=== PATIENT | female | born 1945 | race Caucasian/White ===

== ENCOUNTER 2018-02-05 11:04 | Observation (INO) | payer MEDICARE, OTHER ==
[2018-02-05] VITALS (26 sets, daily range): BP systolic 117–152; BP diastolic 69–94
[~2018-02-05] VITALS: Ht 157.5 cm; Wt 95.5 kg
[~2018-02-05 11:04] MED LIST: ASCO10007 PO; Aspirin PO; CA C1TAB90 PO; CELE200 PO; CHOL200059 PO; CINN500C PO; CRAN1CAP5 PO; CYAN100T PO; HYDR-2132 PO; HYDR12.530 PO; LATA2.5D2 OP; METO-409 PO; PANT40TA25 PO; POTA2TAB18 PO; PRAV20TA4 PO; VITA400C70 PO
[2018-02-05] MEDS ORDERED: NITROGLYCERIN 0.4 MG SL TAB SL ONE (11:32)
[2018-02-05] MEDS ORDERED: GLUCAGON 1MG KIT 1 MG ML ONE (12:13)
[2018-02-05] MEDS ORDERED: SODIUM CHLORIDE 0.9% 500ML 500 ML IV ONE ×2 (12:38→16:13)
[2018-02-05 14:16] LABS: BASOPHILS % (AUTO) 0.7 % (0.0-5.0); HEMATOCRIT 42.5 % (36-48); LYMPHOCYTES % (AUTO) 11.9 % (21.0-51.0); MEAN CORPUSCULAR HEMOGLOBIN 29.7 pg (27.0-33.0); MEAN CORPUSCULAR VOLUME 87.3 fL (79-99); MONOCYTES % (AUTO) 5.4 % (3.0-13.0); PLATELET COUNT (AUTO) 217 K/uL (130-400); RED BLOOD CELL COUNT(AUTO) 4.87 MIL/uL (4.00-5.50); RED CELL DISTRIBUTION WIDTH 13.2 % (11.0-15.5)
[2018-02-05 14:31] LABS: POTASSIUM 4.2 mmol/L (3.5-5.1)
[2018-02-05 14:35] LABS: INR 0.98 (0.85-1.15); PARTIAL THROMBOPLASTIN TIME 25.4 SEC (26.3-35.5); PROTHROMBIN TIME 10.3 SEC (9.6-11.6)
[2018-02-05] MEDS: SODIUM CHLORIDE 0.9% 1000ML 1,000 ML IV SCH (16:01)
[2018-02-05] MEDS ORDERED: ONDANSETRON HCL 4 MG/2 ML VIAL IVP PRN (16:15)
[2018-02-05] MEDS ORDERED: HYDRALAZINE HCL 20 MG/ML VIAL IV PRN (16:15)
[2018-02-05] MEDS ORDERED: SODIUM CHLORIDE 0.9% 1000ML 1,000 ML IV ONE (17:22)
[2018-02-05] MEDS ORDERED: SUCCINYLCHOLINE CHLORIDE 20 MG/ML 10 ML VIAL ONE (17:31)
[2018-02-05] MEDS ORDERED: PROPOFOL 10 MG/ML 20ML VIAL IV ONE (17:31)
[2018-02-05] MEDS ORDERED: ROCURONIUM 10MG/1ML SYR 10 MG/ML ML ONE (17:33)
[2018-02-05] MEDS ORDERED: ESMOLOL HCL 10 MG/ML 10 ML VIAL ONE ×2 (17:34→18:22)
[2018-02-05] MEDS ORDERED: METOPROLOL TARTRATE 1 MG/ML 5ML VIAL IV ONE (18:49)
[2018-02-05] MEDS: CLINDAMYCIN 600 MG/D5% WATER 50 ML IV SCH ×2 (22:00→22:10)
[2018-02-05] MEDS: PANTOPRAZOLE 40 MG/VIAL IVP SCH (22:09)
[2018-02-06] MEDS: SODIUM CHLORIDE 0.9% 1000ML 1,000 ML IV SCH ×3 (00:01→16:01)
[2018-02-06 00:15] VITALS: BP 135/63
[2018-02-06 04:00] VITALS: BP 122/59
[2018-02-06 05:06] LABS: BASOPHILS % (AUTO) 0.5 % (0.0-5.0); EOSINOPHILS % (AUTO) 1.9 % (0.0-8.0); HEMATOCRIT 36.3 % (36-48); LYMPHOCYTES % (AUTO) 28.9 % (21.0-51.0); MEAN CORPUSCULAR HEMOGLOBIN 29.3 pg (27.0-33.0); MEAN CORPUSCULAR HGB CONC 33.7 g/dL (32.0-36.0); MEAN CORPUSCULAR VOLUME 87.2 fL (79-99); MONOCYTES % (AUTO) 9.5 % (3.0-13.0); NEUTROPHILS % (AUTO) 59.2 % (40.0-77.0); PLATELET COUNT (AUTO) 161 K/uL (130-400); RED BLOOD CELL COUNT(AUTO) 4.16 MIL/uL (4.00-5.50); RED CELL DISTRIBUTION WIDTH 13.1 % (11.0-15.5); WHITE BLOOD COUNT (AUTO) 7.6 K/uL (4.8-10.8)
[2018-02-06] MEDS: CLINDAMYCIN 600 MG/D5% WATER 50 ML IV SCH ×2 (05:42→14:10)
[2018-02-06 05:44] LABS: ALBUMIN 2.8 g/dL (3.5-5.0); BILIRUBIN,DIRECT 0.1 mg/dL (0.0-0.3); BILIRUBIN,TOTAL 0.6 mg/dL (0.2-1.0); CREATININE 0.9 mg/dL (0.5-1.5); POTASSIUM 3.4 mmol/L (3.5-5.1); TOTAL PROTEIN, SERUM 6.1 g/dL (6.0-8.3)
[2018-02-06 08:11] VITALS: BP 125/66
[2018-02-06] MEDS: PANTOPRAZOLE 40 MG/VIAL IVP SCH (09:24)
[2018-02-06 11:21] VITALS: BP 126/56
[2018-02-06] MEDS ORDERED: CLIN300C9 PO ×2 (16:01→16:10)
[2018-02-06] MEDS ORDERED: CARAL PO (16:01)
[2018-02-06] MEDS ORDERED: SUCR1TAB28 PO (16:10)
[2018-02-06 16:29] VITALS: BP 118/50
[2018-02-06] MEDS ORDERED: POTASSIUM CHLORIDE 20 MEQ ERTAB PO SCH (17:30)
== END 2018-02-06 19:40 | disposition home or self-care (01) ==
LOC: EDH 11:04 → EDHIP 15:01 → 3DH 19:31
PROVIDERS: ADMIT Internal Medicine; ATTEND Internal Medicine
DX: K22.2 Esophageal obstruction (principal); I10 Essential (primary) hypertension; R11.2 Nausea with vomiting, unspecified; E78.5 Hyperlipidemia, unspecified; K21.9 Gastro-esophageal reflux disease without esophagitis; D72.829 Elevated white blood cell count, unspecified; E66.9 Obesity, unspecified; R93.3 Abnormal findings on diagnostic imaging of other parts of digestive tract; T18.128A Food in esophagus causing other injury, initial encounter; Z82.3 Family history of stroke; Z80.3 Family history of malignant neoplasm of breast; Z88.5 Allergy status to narcotic agent; Z88.0 Allergy status to penicillin; Z79.899 Other long term (current) drug therapy; X58.XXXA Exposure to other specified factors, initial encounter; Y93.89 Activity, other specified; Y92.89 Other specified places as the place of occurrence of the external cause; Y99.8 Other external cause status; Z79.01 Long term (current) use of anticoagulants
CPT/HCPCS: 36415 ×2; 43247; 71250; 80048 ×2; 80076; 83735; 85025 ×2; 85610; 85730; 96361; 96365; 96366; 96375; 96376; 99284; A4218; C9113 ×2; G0378 ×29; J0330; J1610; J2704; J3490 ×6; J7030; J7040 ×2; 43245

== ENCOUNTER 2020-01-21 20:30 | Inpatient (IN) | payer MEDICARE, OTHER ==
[~2020-01-21] VITALS: Ht 157.5 cm; Wt 82.3 kg
[~2020-01-21 20:30] MED LIST changes: +ASCO100031 PO; -ASCO10007 PO; +CARAL PO; +CLIN300C10 PO; -CYAN100T PO; +CYAN100T45 PO; +LATA2.5D14 OP; -LATA2.5D2 OP; -PANT40TA25 PO; +PANT40TA54 PO; +SUCR1TAB28 PO; +VITA-164 PO; -VITA400C70 PO
[2020-01-21 20:54] LABS: BASOPHILS % (AUTO) 0.1 % (0.0-5.0); EOSINOPHILS % (AUTO) 1.6 % (0.0-8.0); HEMATOCRIT 44.9 % (36-48); LYMPHOCYTES % (AUTO) 13.1 % (21.0-51.0); MEAN CORPUSCULAR HEMOGLOBIN 27.6 pg (27.0-33.0); MEAN CORPUSCULAR HGB CONC 34.5 g/dL (32.0-36.0); MEAN CORPUSCULAR VOLUME 79.9 fL (79-99); MONOCYTES % (AUTO) 8.4 % (3.0-13.0); NEUTROPHILS % (AUTO) 76.7 % (40.0-77.0); PLATELET COUNT (AUTO) 195 K/uL (130-400); RED BLOOD CELL COUNT(AUTO) 5.62 MIL/uL (4.00-5.50); RED CELL DISTRIBUTION WIDTH 14.1 % (11.0-15.5); WHITE BLOOD COUNT (AUTO) 6.8 K/uL (4.8-10.8)
[2020-01-21 21:03] LABS: ABG BASE EXCESS 1.4 mmol/L (-2.0-3.0); ABG HCO3 22.8 mmol/L (21.0-28.0); ABG OXYGEN SATURATION 78.4 % (95.0-99.0); ABG PCO2 28 mmHg (32-45)
[2020-01-21 21:04] LABS: CREATININE 1.3 mg/dL (0.5-1.5); POTASSIUM 3.1 mmol/L (3.5-5.1)
[2020-01-21 21:11] LABS: INR 0.95 (0.85-1.15); PROTHROMBIN TIME 10.3 SEC (9.6-11.6)
[2020-01-21] MEDS ORDERED: CEFTRIAXONE SODIUM 2 GM VIAL ONE (21:12)
[2020-01-21] MEDS ORDERED: AZITHROMYCIN 500MG+NS 250ML 250 ML IV ONE (21:12)
[2020-01-21 21:17] LABS: ALBUMIN 2.8 g/dL (3.5-5.0); BILIRUBIN,TOTAL 0.7 mg/dL (0.2-1.0); TOTAL PROTEIN, SERUM 8.1 g/dL (6.0-8.3)
[2020-01-21] MEDS ORDERED: DEXAMETHASONE SOD PHOSPHATE 10MG/ML 1ML VIAL ONE (21:26)
[2020-01-21 22:54] LABS: APPEARANCE,URINE Clear (CLEAR); BILIRUBIN,URINE Negative (NEGATIVE); COLOR,URINE Dark Yellow (YELLOW); GLUCOSE, URINE (UA) Negative (NEGATIVE); KETONES,URINE 15 mg/dL (NEGATIVE); LEUKOCYTE ESTERASE ,URINE Negative (NEGATIVE); NITRATE,URINE Negative (NEGATIVE); OCCULT BLOOD,URINE Negative (NEGATIVE); PH,URINE 5.5 (5.0-8.0); PROTEIN,URINE 300 mg/dL (NEGATIVE)
[2020-01-21 23:07] LABS: BACTERIA,URINE Few /HPF (None Seen); RBC,URINE 0-1 /HPF (0-1)
[2020-01-21 23:08] LABS: FINE GRANULAR CASTS,URINE 0-2 /LPF (None Seen); MUCUS,URINE Few LPF (None Seen)
[2020-01-21] MEDS ORDERED: POTASSIUM BICARB/CIT AC 25 MEQ TABLET.EFF ONE (23:49)
[2020-01-22] MEDS ORDERED: LIDOCAINE HCL-MPF 1% 2ML VIAL IJ PRN (01:30)
[2020-01-22] MEDS ORDERED: ALBUTEROL INHALER 90MCG/INH IH PRN ×2 (01:30→23:00)
[2020-01-22] MEDS ORDERED: LIDOCAINE HCL-MPF 1% 2ML VIAL IV PRN (01:30)
[2020-01-22] MEDS ORDERED: ONDANSETRON HCL 4 MG/2 ML VIAL IVP PRN ×2 (01:30→23:00)
[2020-01-22] MEDS ORDERED: LACTATED RINGERS 1000ML 1,000 ML IV ONE (04:31)
[2020-01-22 05:11] LABS: BASOPHILS % (AUTO) 0.2 % (0.0-5.0); HEMATOCRIT 41.7 % (36-48); LYMPHOCYTES % (AUTO) 12.9 % (21.0-51.0); MEAN CORPUSCULAR HEMOGLOBIN 27.2 pg (27.0-33.0); MEAN CORPUSCULAR HGB CONC 33.8 g/dL (32.0-36.0); MEAN CORPUSCULAR VOLUME 80.3 fL (79-99); MONOCYTES % (AUTO) 5.6 % (3.0-13.0); NEUTROPHILS % (AUTO) 81.1 % (40.0-77.0); PLATELET COUNT (AUTO) 184 K/uL (130-400); RED BLOOD CELL COUNT(AUTO) 5.19 MIL/uL (4.00-5.50); RED CELL DISTRIBUTION WIDTH 14.2 % (11.0-15.5); WHITE BLOOD COUNT (AUTO) 4.1 K/uL (4.8-10.8)
[2020-01-22 05:27] LABS: CREATININE 1.1 mg/dL (0.5-1.5); POTASSIUM 3.4 mmol/L (3.5-5.1)
[2020-01-22 05:31] LABS: ALBUMIN 2.4 g/dL (3.5-5.0); BILIRUBIN,TOTAL 0.4 mg/dL (0.2-1.0); MAGNESIUM 2.5 mg/dL (1.80-2.40); TOTAL PROTEIN, SERUM 7.3 g/dL (6.0-8.3)
[2020-01-22] MEDS: PANTOPRAZOLE SODIUM 40 MG TABLET.DR PO SCH (06:30)
[2020-01-22] MEDS ORDERED: DEXAMETHASONE SOD PHOSPHATE 4 MG/ML 1ML VIAL ONE (07:45)
[2020-01-22] MEDS ORDERED: PANTOPRAZOLE SODIUM 40 MG TABLET.DR ONE (07:45)
[2020-01-22] MEDS: DEXAMETHASONE SOD PHOSPHATE 4 MG/ML 1ML VIAL IVP SCH (09:00)
[2020-01-22] MEDS: LACTATED RINGERS 1000ML 1,000 ML IV SCH ×2 (11:30→21:30)
[2020-01-22] MEDS ORDERED: PHARMACY COMMUNICATION MISC SCH (12:45)
[2020-01-22] MEDS ORDERED: SODIUM CHLORIDE 0.9% 500ML 500 ML IV ONE (13:33)
[2020-01-22] MEDS ORDERED: REMDESIVIR (EUA) 520 200 MG in SODIUM CHLORIDE 0.9% 250 ML IV ONE (15:00)
[2020-01-22] MEDS ORDERED: COMPOUND IV REFRIGERATED 1 EACH IVSOLN MISC PRN (15:00)
[2020-01-22] MEDS ORDERED: CEFTRIAXONE SODIUM 1 GM ONE (19:33)
[2020-01-22] MEDS ORDERED: AZITHROMYCIN 500MG+NS 250ML 250 ML IV ONE (19:33)
[2020-01-22] MEDS ORDERED: SODIUM CHLORIDE 0.9% 50 ML IV ONE (19:34)
[2020-01-22] MEDS: CEFTRIAXONE SODIUM 1 GM IVP SCH (21:00)
[2020-01-22] MEDS ORDERED: ACETAMINOPHEN 650 MG SUPPOSITORY RC PRN (23:00)
[2020-01-22] MEDS ORDERED: CLONIDINE HCL 0.1 MG TABLET PO PRN (23:00)
[2020-01-22] MEDS ORDERED: TEMAZEPAM 15 MG CAPSULE PO PRN (23:00)
[2020-01-23 03:30] VITALS: BP 159/55
[2020-01-23] MEDS: AZITHROMYCIN 500MG+NS 250ML 250 ML IV SCH ×2 (03:30→03:31)
[2020-01-23] MEDS: LACTATED RINGERS 1000ML 1,000 ML IV SCH ×3 (03:31→18:55)
[2020-01-23 05:21] LABS: BASOPHILS % (AUTO) 0.1 % (0.0-5.0); EOSINOPHILS % (AUTO) 0.1 % (0.0-8.0); HEMATOCRIT 44.4 % (36-48); LYMPHOCYTES % (AUTO) 5.8 % (21.0-51.0); MEAN CORPUSCULAR HEMOGLOBIN 26.8 pg (27.0-33.0); MEAN CORPUSCULAR HGB CONC 32.9 g/dL (32.0-36.0); MEAN CORPUSCULAR VOLUME 81.6 fL (79-99); MONOCYTES % (AUTO) 5.1 % (3.0-13.0); NEUTROPHILS % (AUTO) 88.3 % (40.0-77.0); PLATELET COUNT (AUTO) 179 K/uL (130-400); RED BLOOD CELL COUNT(AUTO) 5.44 MIL/uL (4.00-5.50); RED CELL DISTRIBUTION WIDTH 14.3 % (11.0-15.5); WHITE BLOOD COUNT (AUTO) 10.3 K/uL (4.8-10.8)
[2020-01-23 05:42] LABS: CREATININE 1.1 mg/dL (0.5-1.5); MAGNESIUM 2.4 mg/dL (1.80-2.40); POTASSIUM 3.5 mmol/L (3.5-5.1)
[2020-01-23] MEDS: PHARMACY COMMUNICATION MISC SCH (06:00)
[2020-01-23] MEDS: INSULIN HUMULIN R 100 UNIT/ML 3ML SQ SCH ×4 (07:09→21:51)
[2020-01-23 08:00] VITALS: BP 188/86
[2020-01-23] MEDS: PANTOPRAZOLE SODIUM 40 MG TABLET.DR PO SCH (08:06)
[2020-01-23] MEDS ORDERED: ASPIRIN 81MG TAB.CHEW PO SCH (09:00)
[2020-01-23] MEDS ORDERED: ASCORBIC ACID 500 MG TAB PO SCH (09:00)
[2020-01-23] MEDS: DEXAMETHASONE SOD PHOSPHATE 4 MG/ML 1ML VIAL IVP SCH (10:27)
[2020-01-23] MEDS: ENOXAPARIN SODIUM 40 MG/0.4 ML SYRINGE SQ SCH ×2 (10:28→21:50)
[2020-01-23] MEDS: CALCIUM 600 + VITAMIN D 400 TABLET PO SCH (10:43)
[2020-01-23] MEDS: VITAMIN E 400 UNIT CAPSULE PO SCH (10:46)
[2020-01-23] MEDS: ASPIRIN 325MG EC TAB 325 MG TABLET.DR PO SCH (10:47)
[2020-01-23 12:00] VITALS: BP 135/63
[2020-01-23] MEDS: CYANOCOBALAMIN (VITAMIN B-12) 100 MCG TABLET PO SCH (12:09)
[2020-01-23] MEDS: REMDESIVIR (EUA) 520 100 MG in SODIUM CHLORIDE 0.9% 250 ML IV SCH (15:37)
[2020-01-23 16:00] VITALS: BP 134/63
[2020-01-23] MEDS: POTASSIUM CHLORIDE 10 MEQ/TAB.SR PO PRN ×2 (18:57→21:49)
[2020-01-23 21:03] VITALS: BP 140/65
[2020-01-23] MEDS: CEFTRIAXONE SODIUM 1 GM IVP SCH (21:49)
[2020-01-23] MEDS: FUROSEMIDE 10 MG/ML 2ML VIAL IV SCH (21:49)
[2020-01-23] MEDS: LATANOPROST 2.5 ML DROPS OP SCH (22:04)
[2020-01-24 00:30] VITALS: BP 145/91
[2020-01-24] MEDS: AZITHROMYCIN 500MG+NS 250ML 250 ML IV SCH (01:23)
[2020-01-24 04:32] VITALS: BP 126/60
[2020-01-24 05:05] LABS: MEAN CORPUSCULAR HGB CONC 33.5 g/dL (32.0-36.0); MEAN CORPUSCULAR VOLUME 80.6 fL (79-99); RED BLOOD CELL COUNT(AUTO) 4.96 MIL/uL (4.00-5.50); RED CELL DISTRIBUTION WIDTH 14.5 % (11.0-15.5); WHITE BLOOD COUNT (AUTO) 7.5 K/uL (4.8-10.8)
[2020-01-24] MEDS: PHARMACY COMMUNICATION MISC SCH (05:05)
[2020-01-24 05:18] LABS: ALBUMIN 2.2 g/dL (3.5-5.0); BILIRUBIN,DIRECT 0.1 mg/dL (0.0-0.3); BILIRUBIN,TOTAL 0.4 mg/dL (0.2-1.0); CREATININE 0.9 mg/dL (0.5-1.5); POTASSIUM 3.5 mmol/L (3.5-5.1); TOTAL PROTEIN, SERUM 6.7 g/dL (6.0-8.3)
[2020-01-24] MEDS: INSULIN HUMULIN R 100 UNIT/ML 3ML SQ SCH ×4 (05:53→21:52)
[2020-01-24] MEDS: POTASSIUM CHLORIDE 10 MEQ/TAB.SR PO PRN ×2 (06:22→09:23)
[2020-01-24] MEDS: PANTOPRAZOLE SODIUM 40 MG TABLET.DR PO SCH (06:22)
[2020-01-24 07:06] LABS: ABG BASE EXCESS 2.2 mmol/L (-2.0-3.0); ABG HCO3 25.5 mmol/L (21.0-28.0); ABG OXYGEN SATURATION 93.5 % (95.0-99.0); ABG PCO2 36 mmHg (32-45)
[2020-01-24 08:28] VITALS: BP 109/53
[2020-01-24] MEDS: VITAMIN E 400 UNIT CAPSULE PO SCH (09:00)
[2020-01-24] MEDS: CYANOCOBALAMIN (VITAMIN B-12) 100 MCG TABLET PO SCH (09:00)
[2020-01-24] MEDS: CALCIUM 600 + VITAMIN D 400 TABLET PO SCH (09:00)
[2020-01-24] MEDS: CHOLECALCIFEROL 2000 UNIT PO SCH (09:00)
[2020-01-24] MEDS: ENOXAPARIN SODIUM 40 MG/0.4 ML SYRINGE SQ SCH ×2 (09:22→21:47)
[2020-01-24] MEDS: FUROSEMIDE 10 MG/ML 2ML VIAL IV SCH ×2 (09:22→21:47)
[2020-01-24] MEDS: DEXAMETHASONE SOD PHOSPHATE 4 MG/ML 1ML VIAL IVP SCH (09:26)
[2020-01-24] MEDS: ASPIRIN 325MG EC TAB 325 MG TABLET.DR PO SCH (09:26)
[2020-01-24] MEDS: METOPROLOL TARTRATE 25 MG TAB PO SCH ×2 (09:48→21:47)
[2020-01-24] MEDS: ASCORBIC ACID 500 MG TAB PO SCH (09:48)
[2020-01-24 12:00] VITALS: BP 116/50
[2020-01-24] MEDS: REMDESIVIR (EUA) 520 100 MG in SODIUM CHLORIDE 0.9% 250 ML IV SCH (14:23)
[2020-01-24 16:00] VITALS: BP 134/62
[2020-01-24 20:19] VITALS: BP 146/77
[2020-01-24] MEDS: LATANOPROST 2.5 ML DROPS OP SCH (21:00)
[2020-01-24] MEDS: CEFTRIAXONE SODIUM 1 GM IVP SCH (21:47)
[2020-01-25] VITALS (7 sets, daily range): BP systolic 113–168; BP diastolic 43–73
[2020-01-25] MEDS: AZITHROMYCIN 500MG+NS 250ML 250 ML IV SCH (01:30)
[2020-01-25 04:38] LABS: HEMATOCRIT 41.7 % (36-48); MEAN CORPUSCULAR HGB CONC 33.6 g/dL (32.0-36.0); MEAN CORPUSCULAR VOLUME 80.3 fL (79-99); RED BLOOD CELL COUNT(AUTO) 5.19 MIL/uL (4.00-5.50); RED CELL DISTRIBUTION WIDTH 14.4 % (11.0-15.5); WHITE BLOOD COUNT (AUTO) 11.9 K/uL (4.8-10.8)
[2020-01-25 05:09] LABS: ALBUMIN 2.2 g/dL (3.5-5.0); BILIRUBIN,DIRECT 0.1 mg/dL (0.0-0.3); BILIRUBIN,TOTAL 0.4 mg/dL (0.2-1.0); CREATININE 0.9 mg/dL (0.5-1.5); POTASSIUM 3.2 mmol/L (3.5-5.1); TOTAL PROTEIN, SERUM 6.9 g/dL (6.0-8.3)
[2020-01-25] MEDS: PHARMACY COMMUNICATION MISC SCH (06:00)
[2020-01-25] MEDS: POTASSIUM CHLORIDE 10% ELIXIR 20 MEQ/15 ML UDCUP PO PRN (06:01)
[2020-01-25] MEDS: FUROSEMIDE 10 MG/ML 2ML VIAL IV SCH ×2 (06:01→21:45)
[2020-01-25] MEDS: PANTOPRAZOLE SODIUM 40 MG TABLET.DR PO SCH (06:02)
[2020-01-25] MEDS: INSULIN HUMULIN R 100 UNIT/ML 3ML SQ SCH ×4 (07:30→22:04)
[2020-01-25 08:03] LABS: ABG BASE EXCESS 2.2 mmol/L (-2.0-3.0); ABG HCO3 24.3 mmol/L (21.0-28.0); ABG OXYGEN SATURATION 91.4 % (95.0-99.0); ABG PCO2 31 mmHg (32-45)
[2020-01-25] MEDS: VITAMIN E 400 UNIT CAPSULE PO SCH (09:00)
[2020-01-25] MEDS: CHOLECALCIFEROL 2000 UNIT PO SCH (09:00)
[2020-01-25] MEDS: CALCIUM 600 + VITAMIN D 400 TABLET PO SCH (09:00)
[2020-01-25] MEDS: CYANOCOBALAMIN (VITAMIN B-12) 100 MCG TABLET PO SCH (09:00)
[2020-01-25] MEDS: ASCORBIC ACID 500 MG TAB PO SCH (09:59)
[2020-01-25] MEDS: ASPIRIN 325MG EC TAB 325 MG TABLET.DR PO SCH (10:00)
[2020-01-25] MEDS: ACETAMINOPHEN 325 MG TAB PO PRN ×2 (10:00→11:55)
[2020-01-25] MEDS: POTASSIUM CHLORIDE 10 MEQ/TAB.SR PO PRN (10:01)
[2020-01-25] MEDS: DEXAMETHASONE SOD PHOSPHATE 4 MG/ML 1ML VIAL IVP SCH (10:01)
[2020-01-25] MEDS: METOPROLOL TARTRATE 25 MG TAB PO SCH ×2 (10:01→21:42)
[2020-01-25] MEDS: ENOXAPARIN SODIUM 40 MG/0.4 ML SYRINGE SQ SCH ×2 (10:04→21:45)
[2020-01-25] MEDS: CEFEPIME HCL 2 GM VIAL IVP SCH ×2 (12:02→21:45)
[2020-01-25] MEDS: REMDESIVIR (EUA) 520 100 MG in SODIUM CHLORIDE 0.9% 250 ML IV SCH (14:21)
[2020-01-25] MEDS: LATANOPROST 2.5 ML DROPS OP SCH (21:45)
[2020-01-26] VITALS (9 sets, daily range): BP systolic 127–154; BP diastolic 51–78
[2020-01-26] MEDS: AZITHROMYCIN 500MG+NS 250ML 250 ML IV SCH (02:09)
[2020-01-26] MEDS: CEFEPIME HCL 2 GM VIAL IVP SCH ×3 (02:10→22:08)
[2020-01-26] MEDS: PHARMACY COMMUNICATION MISC SCH (04:44)
[2020-01-26] MEDS: ACETAMINOPHEN 325 MG TAB PO PRN (04:52)
[2020-01-26 05:58] LABS: BASOPHILS % (AUTO) 0.1 % (0.0-5.0); EOSINOPHILS % (AUTO) 0.1 % (0.0-8.0); HEMATOCRIT 42.1 % (36-48); LYMPHOCYTES % (AUTO) 6.3 % (21.0-51.0); MEAN CORPUSCULAR HEMOGLOBIN 27.2 pg (27.0-33.0); MEAN CORPUSCULAR HGB CONC 34.2 g/dL (32.0-36.0); MEAN CORPUSCULAR VOLUME 79.4 fL (79-99); MONOCYTES % (AUTO) 2.7 % (3.0-13.0); NEUTROPHILS % (AUTO) 90.2 % (40.0-77.0); PLATELET COUNT (AUTO) 272 K/uL (130-400); RED CELL DISTRIBUTION WIDTH 14.2 % (11.0-15.5); WHITE BLOOD COUNT (AUTO) 10.9 K/uL (4.8-10.8)
[2020-01-26 06:10] LABS: ALBUMIN 2.1 g/dL (3.5-5.0); BILIRUBIN,TOTAL 0.7 mg/dL (0.2-1.0); CREATININE 0.8 mg/dL (0.5-1.5); POTASSIUM 3.3 mmol/L (3.5-5.1); TOTAL PROTEIN, SERUM 7.1 g/dL (6.0-8.3)
[2020-01-26 06:21] LABS: CRP QUANTITATIVE 290.3 mg/L (0.00-9.0)
[2020-01-26] MEDS: INSULIN HUMULIN R 100 UNIT/ML 3ML SQ SCH ×4 (06:21→22:10)
[2020-01-26] MEDS: PANTOPRAZOLE SODIUM 40 MG TABLET.DR PO SCH (06:37)
[2020-01-26 06:52] LABS: ABG BASE EXCESS 5.9 mmol/L (-2.0-3.0); ABG HCO3 29.2 mmol/L (21.0-28.0); ABG OXYGEN SATURATION 92.2 % (95.0-99.0); ABG PCO2 38 mmHg (32-45)
[2020-01-26] MEDS: CHOLECALCIFEROL 2000 UNIT PO SCH (09:00)
[2020-01-26] MEDS ORDERED: ZINC SULFATE 220 CAPSULE PO SCH (09:00)
[2020-01-26] MEDS: ENOXAPARIN SODIUM 40 MG/0.4 ML SYRINGE SQ SCH ×2 (09:20→22:08)
[2020-01-26] MEDS: METOPROLOL TARTRATE 25 MG TAB PO SCH ×2 (09:20→22:08)
[2020-01-26] MEDS: DEXAMETHASONE SOD PHOSPHATE 4 MG/ML 1ML VIAL IVP SCH (09:21)
[2020-01-26] MEDS: ASCORBIC ACID 500 MG TAB PO SCH (09:21)
[2020-01-26] MEDS: FUROSEMIDE 10 MG/ML 2ML VIAL IV SCH ×2 (09:22→18:30)
[2020-01-26] MEDS: CYANOCOBALAMIN (VITAMIN B-12) 100 MCG TABLET PO SCH (09:39)
[2020-01-26] MEDS: VITAMIN E 400 UNIT CAPSULE PO SCH (09:40)
[2020-01-26] MEDS: CALCIUM 600 + VITAMIN D 400 TABLET PO SCH (09:40)
[2020-01-26] MEDS: ASPIRIN 325MG EC TAB 325 MG TABLET.DR PO SCH (09:44)
[2020-01-26] MEDS: POTASSIUM CHLORIDE 10 MEQ/TAB.SR PO PRN (09:45)
[2020-01-26] MEDS ORDERED: AMIODARONE HCL 360 MG in DEXTROSE 5%-WATER 200 ML IV SCH (10:45)
[2020-01-26] MEDS ORDERED: AMIODARONE HCL 150 MG in DEXTROSE 5%-WATER 100 ML IV SCH (10:45)
[2020-01-26] MEDS: POTASSIUM CHLORIDE 10MEQ/100ML 100 ML IV PRN ×2 (12:31→18:30)
[2020-01-26] MEDS: REMDESIVIR (EUA) 520 100 MG in SODIUM CHLORIDE 0.9% 250 ML IV SCH (15:07)
[2020-01-26] MEDS ORDERED: SODIUM CHLORIDE 0.9% 250 ML IV ONE (15:17)
[2020-01-26] MEDS: AMIODARONE HCL 450 MG in DEXTROSE 5%-WATER 250 ML IV SCH (17:35)
[2020-01-26] MEDS: LATANOPROST 2.5 ML DROPS OP SCH (22:08)
[2020-01-27] VITALS (36 sets, daily range): BP systolic 59–159; BP diastolic 23–102
[2020-01-27] MEDS: PHARMACY COMMUNICATION MISC SCH (02:44)
[2020-01-27] MEDS: AZITHROMYCIN 500MG+NS 250ML 250 ML IV SCH (02:57)
[2020-01-27] MEDS: CEFEPIME HCL 2 GM VIAL IVP SCH ×3 (02:57→20:59)
[2020-01-27 04:37] LABS: ABG BASE EXCESS 4.4 mmol/L (-2.0-3.0); ABG HCO3 28.6 mmol/L (21.0-28.0); ABG OXYGEN SATURATION 93.2 % (95.0-99.0); ABG PCO2 41 mmHg (32-45)
[2020-01-27 05:19] LABS: BASOPHILS % (AUTO) 0.1 % (0.0-5.0); HEMATOCRIT 44.2 % (36-48); LYMPHOCYTES % (AUTO) 4.8 % (21.0-51.0); MEAN CORPUSCULAR HEMOGLOBIN 27.4 pg (27.0-33.0); MEAN CORPUSCULAR HGB CONC 34.4 g/dL (32.0-36.0); MEAN CORPUSCULAR VOLUME 79.6 fL (79-99); MONOCYTES % (AUTO) 2.5 % (3.0-13.0); PLATELET COUNT (AUTO) 282 K/uL (130-400); RED BLOOD CELL COUNT(AUTO) 5.55 MIL/uL (4.00-5.50); RED CELL DISTRIBUTION WIDTH 14.5 % (11.0-15.5); WHITE BLOOD COUNT (AUTO) 12.6 K/uL (4.8-10.8)
[2020-01-27 06:02] LABS: ALBUMIN 2.1 g/dL (3.5-5.0); BILIRUBIN,TOTAL 0.8 mg/dL (0.2-1.0); CREATININE 0.9 mg/dL (0.5-1.5); MAGNESIUM 2.3 mg/dL (1.80-2.40); PHOSPHORUS 3.2 mg/dL (2.5-4.9); POTASSIUM 3.6 mmol/L (3.5-5.1); TOTAL PROTEIN, SERUM 7.3 g/dL (6.0-8.3)
[2020-01-27] MEDS: INSULIN HUMULIN R 100 UNIT/ML 3ML SQ SCH ×4 (06:35→20:44)
[2020-01-27] MEDS: PANTOPRAZOLE SODIUM 40 MG TABLET.DR PO SCH (06:40)
[2020-01-27] MEDS: FUROSEMIDE 10 MG/ML 2ML VIAL IV SCH (06:40)
[2020-01-27] MEDS: CHOLECALCIFEROL 2000 UNIT PO SCH (09:00)
[2020-01-27] MEDS: ENOXAPARIN SODIUM 40 MG/0.4 ML SYRINGE SQ SCH (10:02)
[2020-01-27] MEDS: METOPROLOL TARTRATE 25 MG TAB PO SCH ×2 (10:02→20:42)
[2020-01-27] MEDS: ASPIRIN 325MG EC TAB 325 MG TABLET.DR PO SCH (10:02)
[2020-01-27] MEDS: DEXAMETHASONE SOD PHOSPHATE 4 MG/ML 1ML VIAL IVP SCH (10:03)
[2020-01-27] MEDS: AMIODARONE HCL 450 MG in DEXTROSE 5%-WATER 250 ML IV SCH (10:44)
[2020-01-27] MEDS ORDERED: AMIODARONE HCL 200 MG TABLET PO SCH (10:45)
[2020-01-27] MEDS: AMIODARONE HCL 200 MG TABLET PO SCH ×2 (10:47→20:49)
[2020-01-27] MEDS: POTASSIUM CHLORIDE 10MEQ/100ML 100 ML IV PRN (15:55)
[2020-01-27] MEDS: FUROSEMIDE 10 MG/ML 4ML VIAL IV SCH (20:39)
[2020-01-27] MEDS: ENOXAPARIN SODIUM 80 MG/0.8 ML SQ SCH (20:41)
[2020-01-27] MEDS: LATANOPROST 2.5 ML DROPS OP SCH (21:21)
[2020-01-27] MEDS ORDERED: NOREPINEPHRINE 4MG/NS 250ML 250 ML IV ONE (21:38)
[2020-01-27] MEDS ORDERED: LACTATED RINGERS 1000ML IV ONE (22:15)
[2020-01-27] MEDS ORDERED: NOREPINEPHRINE 4MG/NS 250ML 250 ML IV PRN (22:30)
[2020-01-27] MEDS ORDERED: LACTATED RINGERS 1000ML 2,000 ML IV ONE (23:17)
[2020-01-28] VITALS (61 sets, daily range): BP systolic 97–165; BP diastolic 43–81
[2020-01-28 03:39] LABS: ABG BASE EXCESS 4.9 mmol/L (-2.0-3.0); ABG HCO3 29.2 mmol/L (21.0-28.0); ABG OXYGEN SATURATION 93.1 % (95.0-99.0); ABG PCO2 42 mmHg (32-45)
[2020-01-28] MEDS: AZITHROMYCIN 500MG+NS 250ML 250 ML IV SCH (04:09)
[2020-01-28] MEDS: FUROSEMIDE 10 MG/ML 4ML VIAL IV SCH ×4 (04:10→20:30)
[2020-01-28] MEDS: LACTATED RINGERS 1000ML 1,000 ML IV SCH ×2 (04:10→11:29)
[2020-01-28] MEDS: CEFEPIME HCL 2 GM VIAL IVP SCH ×3 (04:13→20:15)
[2020-01-28 04:15] LABS: BASOPHILS % (AUTO) 0.1 % (0.0-5.0); HEMATOCRIT 40.3 % (36-48); LYMPHOCYTES % (AUTO) 4.9 % (21.0-51.0); MEAN CORPUSCULAR HEMOGLOBIN 26.8 pg (27.0-33.0); MEAN CORPUSCULAR HGB CONC 33.5 g/dL (32.0-36.0); MONOCYTES % (AUTO) 3.7 % (3.0-13.0); NEUTROPHILS % (AUTO) 90.7 % (40.0-77.0); PLATELET COUNT (AUTO) 279 K/uL (130-400); RED BLOOD CELL COUNT(AUTO) 5.04 MIL/uL (4.00-5.50); RED CELL DISTRIBUTION WIDTH 14.7 % (11.0-15.5); WHITE BLOOD COUNT (AUTO) 11.3 K/uL (4.8-10.8)
[2020-01-28 04:55] LABS: ALBUMIN 1.8 g/dL (3.5-5.0); BILIRUBIN,TOTAL 0.9 mg/dL (0.2-1.0); MAGNESIUM 2.4 mg/dL (1.80-2.40); PHOSPHORUS 3.5 mg/dL (2.5-4.9); POTASSIUM 3.9 mmol/L (3.5-5.1); TOTAL PROTEIN, SERUM 6.8 g/dL (6.0-8.3)
[2020-01-28] MEDS: PANTOPRAZOLE SODIUM 40 MG TABLET.DR PO SCH (06:30)
[2020-01-28] MEDS: INSULIN HUMULIN R 100 UNIT/ML 3ML SQ SCH ×4 (06:39→21:00)
[2020-01-28] MEDS: AMIODARONE HCL 200 MG TABLET PO SCH ×2 (08:00→21:00)
[2020-01-28] MEDS: CHOLECALCIFEROL 2000 UNIT PO SCH (08:00)
[2020-01-28] MEDS: METOPROLOL TARTRATE 25 MG TAB PO SCH ×2 (08:00→21:00)
[2020-01-28] MEDS: ASPIRIN 325MG EC TAB 325 MG TABLET.DR PO SCH (08:00)
[2020-01-28] MEDS: ENOXAPARIN SODIUM 80 MG/0.8 ML SQ SCH ×2 (08:48→20:16)
[2020-01-28] MEDS: FAMOTIDINE/PF 20 MG/2 ML VIAL IV SCH (08:48)
[2020-01-28] MEDS: DEXAMETHASONE SOD PHOSPHATE 4 MG/ML 1ML VIAL IVP SCH (08:52)
[2020-01-28] MEDS ORDERED: FENTANYL 2500MCG+NS 250ML 250 ML IV SCH (14:30)
[2020-01-28] MEDS: LATANOPROST 2.5 ML DROPS OP SCH (21:00)
[2020-01-29] VITALS (59 sets, daily range): BP systolic 113–170; BP diastolic 44–116
[2020-01-29] MEDS: LACTATED RINGERS 1000ML 1,000 ML IV SCH ×2 (00:55→12:29)
[2020-01-29] MEDS: AZITHROMYCIN 500MG+NS 250ML 250 ML IV SCH (00:55)
[2020-01-29] MEDS: FUROSEMIDE 10 MG/ML 4ML VIAL IV SCH ×3 (02:14→12:28)
[2020-01-29] MEDS: CEFEPIME HCL 2 GM VIAL IVP SCH ×3 (02:15→20:45)
[2020-01-29 04:17] LABS: ABG BASE EXCESS 4.5 mmol/L (-2.0-3.0); ABG HCO3 29.1 mmol/L (21.0-28.0); ABG OXYGEN SATURATION 96.2 % (95.0-99.0); ABG PCO2 43 mmHg (32-45)
[2020-01-29 04:57] LABS: BASOPHILS % (AUTO) 0.2 % (0.0-5.0); HEMATOCRIT 45.4 % (36-48); LYMPHOCYTES % (AUTO) 5.2 % (21.0-51.0); MEAN CORPUSCULAR HEMOGLOBIN 27.5 pg (27.0-33.0); MEAN CORPUSCULAR HGB CONC 33.3 g/dL (32.0-36.0); MEAN CORPUSCULAR VOLUME 82.5 fL (79-99); MONOCYTES % (AUTO) 4.2 % (3.0-13.0); PLATELET COUNT (AUTO) 330 K/uL (130-400); RED CELL DISTRIBUTION WIDTH 15.1 % (11.0-15.5); WHITE BLOOD COUNT (AUTO) 11.6 K/uL (4.8-10.8)
[2020-01-29 05:02] LABS: ALBUMIN 2.1 g/dL (3.5-5.0); BILIRUBIN,TOTAL 0.8 mg/dL (0.2-1.0); CREATININE 1.5 mg/dL (0.5-1.5); MAGNESIUM 2.8 mg/dL (1.80-2.40); PHOSPHORUS 5.3 mg/dL (2.5-4.9); POTASSIUM 3.6 mmol/L (3.5-5.1); TOTAL PROTEIN, SERUM 7.6 g/dL (6.0-8.3)
[2020-01-29] MEDS: INSULIN HUMULIN R 100 UNIT/ML 3ML SQ SCH ×4 (05:52→22:14)
[2020-01-29] MEDS: FAMOTIDINE/PF 20 MG/2 ML VIAL IV SCH (08:39)
[2020-01-29] MEDS: CHOLECALCIFEROL 2000 UNIT PO SCH (08:40)
[2020-01-29] MEDS: ENOXAPARIN SODIUM 80 MG/0.8 ML SQ SCH ×2 (08:40→20:46)
[2020-01-29] MEDS: DEXAMETHASONE SOD PHOSPHATE 4 MG/ML 1ML VIAL IVP SCH (08:40)
[2020-01-29] MEDS: AMIODARONE HCL 200 MG TABLET PO SCH ×2 (12:29→20:46)
[2020-01-29] MEDS: METOPROLOL TARTRATE 25 MG TAB PO SCH ×2 (12:29→20:46)
[2020-01-29] MEDS: ASPIRIN 325MG EC TAB 325 MG TABLET.DR PO SCH (12:29)
[2020-01-29 16:48] LABS: INR 1.11 (0.85-1.15); PARTIAL THROMBOPLASTIN TIME 27.1 SEC (26.3-35.5); PROTHROMBIN TIME 11.9 SEC (9.6-11.6)
[2020-01-29] MEDS ORDERED: CLINIMIX E 4.25%-5% SOLUTION 2,000 ML IV SCH (18:00)
[2020-01-29] MEDS: FUROSEMIDE 10 MG/ML 2ML VIAL IV SCH (20:46)
[2020-01-29] MEDS: POTASSIUM CHLORIDE 10 MEQ/TAB.SR PO PRN (20:48)
[2020-01-29] MEDS: LATANOPROST 2.5 ML DROPS OP SCH (22:15)
[2020-01-30] VITALS (44 sets, daily range): BP systolic 115–187; BP diastolic 51–86
[2020-01-30] MEDS: LACTATED RINGERS 1000ML 1,000 ML IV SCH ×2 (01:45→16:55)
[2020-01-30] MEDS: AZITHROMYCIN 500MG+NS 250ML 250 ML IV SCH (01:45)
[2020-01-30] MEDS: CEFEPIME HCL 2 GM VIAL IVP SCH ×3 (03:11→20:18)
[2020-01-30 03:39] LABS: ABG HCO3 25.5 mmol/L (21.0-28.0); ABG PCO2 40 mmHg (32-45)
[2020-01-30 04:37] LABS: BASOPHILS % (AUTO) 0.1 % (0.0-5.0); HEMATOCRIT 45.6 % (36-48); LYMPHOCYTES % (AUTO) 4.4 % (21.0-51.0); MEAN CORPUSCULAR HEMOGLOBIN 26.8 pg (27.0-33.0); MEAN CORPUSCULAR HGB CONC 32.5 g/dL (32.0-36.0); MEAN CORPUSCULAR VOLUME 82.6 fL (79-99); MONOCYTES % (AUTO) 3.4 % (3.0-13.0); NEUTROPHILS % (AUTO) 91.5 % (40.0-77.0); PLATELET COUNT (AUTO) 321 K/uL (130-400); RED BLOOD CELL COUNT(AUTO) 5.52 MIL/uL (4.00-5.50); RED CELL DISTRIBUTION WIDTH 15.2 % (11.0-15.5); WHITE BLOOD COUNT (AUTO) 12.5 K/uL (4.8-10.8)
[2020-01-30 05:07] LABS: BILIRUBIN,TOTAL 0.6 mg/dL (0.2-1.0); CREATININE 1.5 mg/dL (0.5-1.5); MAGNESIUM 3.2 mg/dL (1.80-2.40); PHOSPHORUS 4.4 mg/dL (2.5-4.9); POTASSIUM 3.7 mmol/L (3.5-5.1); TOTAL PROTEIN, SERUM 7.5 g/dL (6.0-8.3)
[2020-01-30] MEDS: INSULIN HUMULIN R 100 UNIT/ML 3ML SQ SCH ×5 (07:00→22:11)
[2020-01-30] MEDS: DEXAMETHASONE SOD PHOSPHATE 4 MG/ML 1ML VIAL IVP SCH (10:21)
[2020-01-30] MEDS: ASPIRIN 325MG EC TAB 325 MG TABLET.DR PO SCH (10:21)
[2020-01-30] MEDS: FUROSEMIDE 10 MG/ML 2ML VIAL IV SCH ×2 (10:22→20:17)
[2020-01-30] MEDS: POTASSIUM CHLORIDE 10% ELIXIR 20 MEQ/15 ML UDCUP PO PRN (10:22)
[2020-01-30] MEDS: FAMOTIDINE/PF 20 MG/2 ML VIAL IV SCH (10:22)
[2020-01-30] MEDS: METOPROLOL TARTRATE 25 MG TAB PO SCH ×2 (10:23→20:18)
[2020-01-30] MEDS: ENOXAPARIN SODIUM 80 MG/0.8 ML SQ SCH ×2 (10:23→20:18)
[2020-01-30] MEDS: ACETAMINOPHEN 325 MG TAB PO PRN (10:24)
[2020-01-30] MEDS: AMIODARONE HCL 200 MG TABLET PO SCH ×2 (10:24→20:18)
[2020-01-30] MEDS: CHOLECALCIFEROL 2000 UNIT PO SCH (10:25)
[2020-01-30] MEDS: LATANOPROST 2.5 ML DROPS OP SCH (20:35)
[2020-01-31] VITALS (27 sets, daily range): BP systolic 102–152; BP diastolic 50–88
[2020-01-31] MEDS: AZITHROMYCIN 500MG+NS 250ML 250 ML IV SCH (01:23)
[2020-01-31] MEDS: CEFEPIME HCL 2 GM VIAL IVP SCH ×3 (04:12→21:58)
[2020-01-31 04:52] LABS: BASOPHILS % (AUTO) 0.1 % (0.0-5.0); EOSINOPHILS % (AUTO) 0.1 % (0.0-8.0); LYMPHOCYTES % (AUTO) 3.9 % (21.0-51.0); MEAN CORPUSCULAR HEMOGLOBIN 26.6 pg (27.0-33.0); MEAN CORPUSCULAR HGB CONC 32.6 g/dL (32.0-36.0); MEAN CORPUSCULAR VOLUME 81.6 fL (79-99); MONOCYTES % (AUTO) 2.8 % (3.0-13.0); NEUTROPHILS % (AUTO) 92.4 % (40.0-77.0); PLATELET COUNT (AUTO) 285 K/uL (130-400); RED BLOOD CELL COUNT(AUTO) 5.27 MIL/uL (4.00-5.50); RED CELL DISTRIBUTION WIDTH 15.1 % (11.0-15.5); WHITE BLOOD COUNT (AUTO) 15.5 K/uL (4.8-10.8)
[2020-01-31 05:12] LABS: ALBUMIN 1.8 g/dL (3.5-5.0); BILIRUBIN,TOTAL 0.6 mg/dL (0.2-1.0); CREATININE 1.1 mg/dL (0.5-1.5); MAGNESIUM 2.6 mg/dL (1.80-2.40); PHOSPHORUS 3.5 mg/dL (2.5-4.9)
[2020-01-31] MEDS: LACTATED RINGERS 1000ML 1,000 ML IV SCH (05:19)
[2020-01-31] MEDS: INSULIN HUMULIN R 100 UNIT/ML 3ML SQ SCH ×4 (06:53→22:04)
[2020-01-31] MEDS: FUROSEMIDE 10 MG/ML 2ML VIAL IV SCH ×2 (09:00→22:00)
[2020-01-31] MEDS ORDERED: CLINIMIX E 4.25%-5% SOLUTION 2,000 ML IV SCH (10:00)
[2020-01-31] MEDS: ASPIRIN 325MG EC TAB 325 MG TABLET.DR PO SCH (10:18)
[2020-01-31] MEDS: AMIODARONE HCL 200 MG TABLET PO SCH ×2 (10:18→21:59)
[2020-01-31] MEDS: METOPROLOL TARTRATE 25 MG TAB PO SCH ×2 (10:18→21:59)
[2020-01-31] MEDS: ACETAMINOPHEN 325 MG TAB PO PRN (10:18)
[2020-01-31] MEDS: DEXAMETHASONE SOD PHOSPHATE 4 MG/ML 1ML VIAL IVP SCH (10:19)
[2020-01-31] MEDS: ENOXAPARIN SODIUM 80 MG/0.8 ML SQ SCH ×2 (10:20→21:58)
[2020-01-31] MEDS: FAMOTIDINE/PF 20 MG/2 ML VIAL IV SCH (10:29)
[2020-01-31] MEDS: CHOLECALCIFEROL 2000 UNIT PO SCH (11:14)
[2020-01-31] MEDS: LATANOPROST 2.5 ML DROPS OP SCH (22:24)
[2020-02-01] VITALS (23 sets, daily range): BP systolic 104–163; BP diastolic 45–105
[2020-02-01 04:05] LABS: ABG BASE EXCESS 0.9 mmol/L (-2.0-3.0); ABG HCO3 24.8 mmol/L (21.0-28.0); ABG OXYGEN SATURATION 96.3 % (95.0-99.0); ABG PCO2 38 mmHg (32-45)
[2020-02-01 04:39] LABS: BASOPHILS % (AUTO) 0.1 % (0.0-5.0); EOSINOPHILS % (AUTO) 0.1 % (0.0-8.0); HEMATOCRIT 39.7 % (36-48); LYMPHOCYTES % (AUTO) 4.3 % (21.0-51.0); MEAN CORPUSCULAR HEMOGLOBIN 27.2 pg (27.0-33.0); MEAN CORPUSCULAR VOLUME 82.5 fL (79-99); MONOCYTES % (AUTO) 2.3 % (3.0-13.0); NEUTROPHILS % (AUTO) 92.5 % (40.0-77.0); PLATELET COUNT (AUTO) 245 K/uL (130-400); RED BLOOD CELL COUNT(AUTO) 4.81 MIL/uL (4.00-5.50); RED CELL DISTRIBUTION WIDTH 14.8 % (11.0-15.5); WHITE BLOOD COUNT (AUTO) 16.6 K/uL (4.8-10.8)
[2020-02-01] MEDS: CEFEPIME HCL 2 GM VIAL IVP SCH ×3 (04:48→21:43)
[2020-02-01 05:24] LABS: ALBUMIN 1.9 g/dL (3.5-5.0); BILIRUBIN,TOTAL 0.7 mg/dL (0.2-1.0); CREATININE 1.1 mg/dL (0.5-1.5); PHOSPHORUS 3.8 mg/dL (2.5-4.9); POTASSIUM 4.3 mmol/L (3.5-5.1); TOTAL PROTEIN, SERUM 6.8 g/dL (6.0-8.3)
[2020-02-01] MEDS: INSULIN HUMULIN R 100 UNIT/ML 3ML SQ SCH ×4 (07:30→21:39)
[2020-02-01] MEDS: CHOLECALCIFEROL 2000 UNIT PO SCH (09:00)
[2020-02-01] MEDS: ASPIRIN 325MG EC TAB 325 MG TABLET.DR PO SCH (10:06)
[2020-02-01] MEDS: FAMOTIDINE/PF 20 MG/2 ML VIAL IV SCH (10:06)
[2020-02-01] MEDS: DEXAMETHASONE SOD PHOSPHATE 4 MG/ML 1ML VIAL IVP SCH (10:06)
[2020-02-01] MEDS: METOPROLOL TARTRATE 25 MG TAB PO SCH ×2 (10:06→21:38)
[2020-02-01] MEDS: AMIODARONE HCL 200 MG TABLET PO SCH ×2 (10:06→21:38)
[2020-02-01] MEDS: ENOXAPARIN SODIUM 80 MG/0.8 ML SQ SCH ×2 (10:07→21:38)
[2020-02-01] MEDS: FUROSEMIDE 10 MG/ML 2ML VIAL IV SCH (11:28)
[2020-02-01] MEDS: LATANOPROST 2.5 ML DROPS OP SCH (21:00)
[2020-02-02] VITALS (28 sets, daily range): BP systolic 45–178; BP diastolic 22–86
[2020-02-02 04:27] LABS: BASOPHILS % (AUTO) 0.2 % (0.0-5.0); EOSINOPHILS % (AUTO) 0.3 % (0.0-8.0); HEMATOCRIT 37.4 % (36-48); LYMPHOCYTES % (AUTO) 5.6 % (21.0-51.0); MEAN CORPUSCULAR HEMOGLOBIN 27.3 pg (27.0-33.0); MEAN CORPUSCULAR HGB CONC 32.9 g/dL (32.0-36.0); MEAN CORPUSCULAR VOLUME 83.1 fL (79-99); NEUTROPHILS % (AUTO) 89.7 % (40.0-77.0); PLATELET COUNT (AUTO) 215 K/uL (130-400); RED CELL DISTRIBUTION WIDTH 14.9 % (11.0-15.5); WHITE BLOOD COUNT (AUTO) 18.9 K/uL (4.8-10.8)
[2020-02-02] MEDS: CEFEPIME HCL 2 GM VIAL IVP SCH ×3 (04:42→21:07)
[2020-02-02 04:44] LABS: ALBUMIN 1.7 g/dL (3.5-5.0); BILIRUBIN,TOTAL 0.6 mg/dL (0.2-1.0); CREATININE 0.9 mg/dL (0.5-1.5); MAGNESIUM 2.7 mg/dL (1.80-2.40); PHOSPHORUS 4.6 mg/dL (2.5-4.9); POTASSIUM 5.5 mmol/L (3.5-5.1); TOTAL PROTEIN, SERUM 6.6 g/dL (6.0-8.3)
[2020-02-02] MEDS: INSULIN HUMULIN R 100 UNIT/ML 3ML SQ SCH ×4 (07:30→21:00)
[2020-02-02] MEDS: CHOLECALCIFEROL 2000 UNIT PO SCH (09:00)
[2020-02-02] MEDS: DEXAMETHASONE SOD PHOSPHATE 4 MG/ML 1ML VIAL IVP SCH (09:49)
[2020-02-02] MEDS: ENOXAPARIN SODIUM 80 MG/0.8 ML SQ SCH ×2 (09:50→20:21)
[2020-02-02] MEDS: ASPIRIN 325MG EC TAB 325 MG TABLET.DR PO SCH (09:50)
[2020-02-02] MEDS: FAMOTIDINE/PF 20 MG/2 ML VIAL IV SCH (09:50)
[2020-02-02] MEDS: AMIODARONE HCL 200 MG TABLET PO SCH ×2 (09:51→21:07)
[2020-02-02] MEDS: METOPROLOL TARTRATE 25 MG TAB PO SCH ×2 (09:51→21:06)
[2020-02-02] MEDS: BALSAM PERU/CASTOR OIL 60 GM TUBE TP SCH ×2 (13:31→20:21)
[2020-02-02] MEDS: LATANOPROST 2.5 ML DROPS OP SCH (20:21)
[2020-02-03] VITALS (23 sets, daily range): BP systolic 130–182; BP diastolic 52–85
[2020-02-03] MEDS: CEFEPIME HCL 2 GM VIAL IVP SCH ×3 (04:17→20:19)
[2020-02-03 04:51] LABS: HEMATOCRIT 39.4 % (36-48); MEAN CORPUSCULAR HEMOGLOBIN 26.8 pg (27.0-33.0); MEAN CORPUSCULAR HGB CONC 32.2 g/dL (32.0-36.0); MEAN CORPUSCULAR VOLUME 83.3 fL (79-99); NUCLEATED RED BLOOD CELLS 0.1 % (0.0-0.19); RED BLOOD CELL COUNT(AUTO) 4.73 MIL/uL (4.00-5.50); WHITE BLOOD COUNT (AUTO) 22.3 K/uL (4.8-10.8)
[2020-02-03 05:04] LABS: CREATININE 1.2 mg/dL (0.5-1.5)
[2020-02-03] MEDS: INSULIN HUMULIN R 100 UNIT/ML 3ML SQ SCH ×4 (06:19→21:00)
[2020-02-03] MEDS: METOPROLOL TARTRATE 25 MG TAB PO SCH ×2 (08:03→20:19)
[2020-02-03] MEDS: FAMOTIDINE/PF 20 MG/2 ML VIAL IV SCH (08:03)
[2020-02-03] MEDS: ASPIRIN 325MG EC TAB 325 MG TABLET.DR PO SCH (08:03)
[2020-02-03] MEDS: DOCUSATE SODIUM 100 MG CAP PO PRN (08:03)
[2020-02-03] MEDS: AMIODARONE HCL 200 MG TABLET PO SCH ×2 (08:03→20:19)
[2020-02-03] MEDS: ENOXAPARIN SODIUM 80 MG/0.8 ML SQ SCH ×2 (08:04→20:19)
[2020-02-03] MEDS: DEXAMETHASONE SOD PHOSPHATE 4 MG/ML 1ML VIAL IVP SCH (08:05)
[2020-02-03] MEDS: BALSAM PERU/CASTOR OIL 60 GM TUBE TP SCH ×3 (08:07→20:20)
[2020-02-03] MEDS: CHOLECALCIFEROL 2000 UNIT PO SCH (08:10)
[2020-02-03] MEDS ORDERED: PHARMACY COMMUNICATION MISC SCH (14:00)
[2020-02-03] MEDS ORDERED: VANCOMYCIN PROTOCOL PER PHARMACY IV SCH (14:00)
[2020-02-03] MEDS ORDERED: VANCOMYCIN 1.75 GM in SODIUM CHLORIDE 0.9% 250 ML IV ONE (15:00)
[2020-02-03] MEDS ORDERED: COMPOUND IV REFRIGERATED 1 EACH IVSOLN MISC PRN (15:15)
[2020-02-03] MEDS: LATANOPROST 2.5 ML DROPS OP SCH (20:19)
[2020-02-04] VITALS (24 sets, daily range): BP systolic 114–182; BP diastolic 52–89
[2020-02-04 03:59] LABS: HEMATOCRIT 38.2 % (36-48); MEAN CORPUSCULAR HEMOGLOBIN 27.3 pg (27.0-33.0); MEAN CORPUSCULAR HGB CONC 32.2 g/dL (32.0-36.0); MEAN CORPUSCULAR VOLUME 84.7 fL (79-99); RED BLOOD CELL COUNT(AUTO) 4.51 MIL/uL (4.00-5.50); RED CELL DISTRIBUTION WIDTH 15.3 % (11.0-15.5); WHITE BLOOD COUNT (AUTO) 20.5 K/uL (4.8-10.8)
[2020-02-04 04:14] LABS: CREATININE 1.3 mg/dL (0.5-1.5); POTASSIUM 5.1 mmol/L (3.5-5.1)
[2020-02-04] MEDS: CEFEPIME HCL 2 GM VIAL IVP SCH (04:17)
[2020-02-04 04:38] LABS: ABG BASE EXCESS -2.8 mmol/L (-2.0-3.0); ABG HCO3 21.3 mmol/L (21.0-28.0); ABG OXYGEN SATURATION 92.2 % (95.0-99.0); ABG PCO2 35 mmHg (32-45)
[2020-02-04] MEDS: VANCOMYCIN 500MG+NS 100ML 100 ML IV SCH ×2 (06:38→17:25)
[2020-02-04] MEDS: INSULIN HUMULIN R 100 UNIT/ML 3ML SQ SCH ×4 (06:38→21:12)
[2020-02-04] MEDS: ASPIRIN 325MG EC TAB 325 MG TABLET.DR PO SCH (08:26)
[2020-02-04] MEDS: FAMOTIDINE/PF 20 MG/2 ML VIAL IV SCH (08:26)
[2020-02-04] MEDS: METOPROLOL TARTRATE 25 MG TAB PO SCH ×2 (08:27→20:57)
[2020-02-04] MEDS: ENOXAPARIN SODIUM 80 MG/0.8 ML SQ SCH ×2 (08:27→21:08)
[2020-02-04] MEDS: DEXAMETHASONE SOD PHOSPHATE 4 MG/ML 1ML VIAL IVP SCH (08:27)
[2020-02-04] MEDS: AMIODARONE HCL 200 MG TABLET PO SCH ×2 (08:27→20:57)
[2020-02-04] MEDS: BALSAM PERU/CASTOR OIL 60 GM TUBE TP SCH ×3 (08:28→21:05)
[2020-02-04] MEDS: CHOLECALCIFEROL 2000 UNIT PO SCH (08:29)
[2020-02-04] MEDS ORDERED: DEXMEDETOMIDINE HCL 400 MCG in SODIUM CHLORIDE 0.9% 100 ML IV SCH (13:15)
[2020-02-04] MEDS ORDERED: DEXMEDETOMIDINE HCL 1,000 MCG in SODIUM CHLORIDE 0.9% 250 ML IV SCH (13:30)
[2020-02-04] MEDS: LATANOPROST 2.5 ML DROPS OP SCH (21:04)
[2020-02-05] VITALS (42 sets, daily range): BP systolic 118–185; BP diastolic 39–106
[2020-02-05 05:07] LABS: HEMATOCRIT 35.6 % (36-48); MEAN CORPUSCULAR HEMOGLOBIN 27.4 pg (27.0-33.0); MEAN CORPUSCULAR HGB CONC 32.3 g/dL (32.0-36.0); MEAN CORPUSCULAR VOLUME 84.8 fL (79-99); RED BLOOD CELL COUNT(AUTO) 4.2 MIL/uL (4.00-5.50); RED CELL DISTRIBUTION WIDTH 15.5 % (11.0-15.5); WHITE BLOOD COUNT (AUTO) 18.2 K/uL (4.8-10.8)
[2020-02-05 05:14] LABS: CREATININE 1.1 mg/dL (0.5-1.5); POTASSIUM 4.6 mmol/L (3.5-5.1)
[2020-02-05] MEDS: INSULIN HUMULIN R 100 UNIT/ML 3ML SQ SCH ×4 (06:35→21:54)
[2020-02-05] MEDS: VANCOMYCIN 500MG+NS 100ML 100 ML IV SCH ×2 (06:37→07:16)
[2020-02-05] MEDS: CHOLECALCIFEROL 2000 UNIT PO SCH (09:00)
[2020-02-05] MEDS: DEXAMETHASONE SOD PHOSPHATE 4 MG/ML 1ML VIAL IVP SCH (12:06)
[2020-02-05] MEDS: DOCUSATE SODIUM 100 MG CAP PO PRN ×2 (12:07→12:12)
[2020-02-05] MEDS: ASPIRIN 325MG EC TAB 325 MG TABLET.DR PO SCH (12:07)
[2020-02-05] MEDS: METOPROLOL TARTRATE 25 MG TAB PO SCH ×2 (12:09→21:16)
[2020-02-05] MEDS: ACETAMINOPHEN 325 MG TAB PO PRN ×2 (12:09→12:11)
[2020-02-05] MEDS: AMIODARONE HCL 200 MG TABLET PO SCH ×2 (12:09→21:16)
[2020-02-05] MEDS: ENOXAPARIN SODIUM 80 MG/0.8 ML SQ SCH ×2 (12:19→21:56)
[2020-02-05] MEDS: FAMOTIDINE/PF 20 MG/2 ML VIAL IV SCH (12:20)
[2020-02-05] MEDS: BALSAM PERU/CASTOR OIL 60 GM TUBE TP SCH ×3 (12:27→21:52)
[2020-02-05] MEDS: LATANOPROST 2.5 ML DROPS OP SCH (21:52)
[2020-02-06] VITALS (18 sets, daily range): BP systolic 111–163; BP diastolic 36–98
[2020-02-06 04:43] LABS: HEMATOCRIT 36.3 % (36-48); MEAN CORPUSCULAR HEMOGLOBIN 27.3 pg (27.0-33.0); MEAN CORPUSCULAR HGB CONC 32.5 g/dL (32.0-36.0); NUCLEATED RED BLOOD CELLS 0.1 % (0.0-0.19); RED BLOOD CELL COUNT(AUTO) 4.32 MIL/uL (4.00-5.50); RED CELL DISTRIBUTION WIDTH 15.6 % (11.0-15.5); WHITE BLOOD COUNT (AUTO) 22.3 K/uL (4.8-10.8)
[2020-02-06 04:59] LABS: CREATININE 1.1 mg/dL (0.5-1.5); POTASSIUM 4.7 mmol/L (3.5-5.1)
[2020-02-06] MEDS: VANCOMYCIN 500MG+NS 100ML 100 ML IV SCH (05:12)
[2020-02-06 07:21] LABS: ABG BASE EXCESS -5.7 mmol/L (-2.0-3.0); ABG HCO3 18.2 mmol/L (21.0-28.0); ABG OXYGEN SATURATION 98.7 % (95.0-99.0); ABG PCO2 32 mmHg (32-45)
[2020-02-06] MEDS: INSULIN HUMULIN R 100 UNIT/ML 3ML SQ SCH ×3 (07:30→17:56)
[2020-02-06] MEDS: CHOLECALCIFEROL 2000 UNIT PO SCH (09:00)
[2020-02-06] MEDS: ASPIRIN 325MG EC TAB 325 MG TABLET.DR PO SCH (09:20)
[2020-02-06] MEDS: METOPROLOL TARTRATE 25 MG TAB PO SCH (09:21)
[2020-02-06] MEDS: ENOXAPARIN SODIUM 80 MG/0.8 ML SQ SCH (09:21)
[2020-02-06] MEDS: AMIODARONE HCL 200 MG TABLET PO SCH (09:21)
[2020-02-06] MEDS: DEXAMETHASONE SOD PHOSPHATE 4 MG/ML 1ML VIAL IVP SCH (09:21)
[2020-02-06] MEDS: BALSAM PERU/CASTOR OIL 60 GM TUBE TP SCH ×2 (09:22→13:28)
[2020-02-06] MEDS: FAMOTIDINE/PF 20 MG/2 ML VIAL IV SCH (10:33)
[2020-02-06] MEDS ORDERED: FLUCONAZOLE 200 MG/NS 100 ML 100 ML IV SCH (12:47)
[2020-02-06] MEDS ORDERED: VANCOMYCIN 500MG+NS 100ML 100 ML IV SCH (18:00)
== END 2020-02-06 18:10 | disposition expired | DRG 177 ==
LOC: EDH 20:30 → EDHIP 21:45 → 2AH 01-23 00:19 → 2BH 01-27 16:58
PROVIDERS: ADMIT Internal Medicine Critical Care Medicine; ATTEND Internal Medicine Critical Care Medicine
PROC: 5A0945A Assistance with Respiratory Ventilation, 24-96 Consecutive Hours, High Flow/Velocity Cannula (ICD-10-PCS; 2020-01-21)
PROC: XW13325 Transfusion of Convalescent Plasma (Nonautologous) into Peripheral Vein, Percutaneous Approach, New Technology Group 5 (ICD-10-PCS; principal; 2020-01-22)
PROC: 5A0935A Assistance with Respiratory Ventilation, Less than 24 Consecutive Hours, High Flow/Velocity Cannula (ICD-10-PCS; 2020-01-23)
PROC: 5A0935A Assistance with Respiratory Ventilation, Less than 24 Consecutive Hours, High Flow/Velocity Cannula (ICD-10-PCS; 2020-01-24)
PROC: 5A0935A Assistance with Respiratory Ventilation, Less than 24 Consecutive Hours, High Flow/Velocity Cannula (ICD-10-PCS; 2020-01-25)
PROC: XW033E5 Introduction of Remdesivir Anti-infective into Peripheral Vein, Percutaneous Approach, New Technology Group 5 (ICD-10-PCS; 2020-01-26)
PROC: 5A0935A Assistance with Respiratory Ventilation, Less than 24 Consecutive Hours, High Flow/Velocity Cannula (ICD-10-PCS; 2020-01-26)
PROC: 5A09357 Assistance with Respiratory Ventilation, Less than 24 Consecutive Hours, Continuous Positive Airway Pressure (ICD-10-PCS; 2020-01-26)
PROC: 5A0935A Assistance with Respiratory Ventilation, Less than 24 Consecutive Hours, High Flow/Velocity Cannula (ICD-10-PCS; 2020-01-27)
PROC: 5A09357 Assistance with Respiratory Ventilation, Less than 24 Consecutive Hours, Continuous Positive Airway Pressure (ICD-10-PCS; 2020-01-27)
PROC: 5A09557 Assistance with Respiratory Ventilation, Greater than 96 Consecutive Hours, Continuous Positive Airway Pressure (ICD-10-PCS; 2020-01-27)
PROC: 02HV33Z Insertion of Infusion Device into Superior Vena Cava, Percutaneous Approach (ICD-10-PCS; 2020-01-30)
PROC: B548ZZA Ultrasonography of Superior Vena Cava, Guidance (ICD-10-PCS; 2020-01-30)
PROC: 5A0935A Assistance with Respiratory Ventilation, Less than 24 Consecutive Hours, High Flow/Velocity Cannula (ICD-10-PCS; 2020-01-31)
PROC: 5A0935A Assistance with Respiratory Ventilation, Less than 24 Consecutive Hours, High Flow/Velocity Cannula (ICD-10-PCS; 2020-02-01)
PROC: 5A09457 Assistance with Respiratory Ventilation, 24-96 Consecutive Hours, Continuous Positive Airway Pressure (ICD-10-PCS; 2020-02-01)
PROC: 5A0945A Assistance with Respiratory Ventilation, 24-96 Consecutive Hours, High Flow/Velocity Cannula (ICD-10-PCS; 2020-02-04)
PROC: 5A09357 Assistance with Respiratory Ventilation, Less than 24 Consecutive Hours, Continuous Positive Airway Pressure (ICD-10-PCS; 2020-02-05)
PROC: 5A0935A Assistance with Respiratory Ventilation, Less than 24 Consecutive Hours, High Flow/Velocity Cannula (ICD-10-PCS; 2020-02-06)
PROC: 5A09357 Assistance with Respiratory Ventilation, Less than 24 Consecutive Hours, Continuous Positive Airway Pressure (ICD-10-PCS; 2020-02-06)
DX: U07.1 COVID-19 (principal); J12.89 Other viral pneumonia; J96.91 Respiratory failure, unspecified with hypoxia; A41.89 Other specified sepsis; I48.91 Unspecified atrial fibrillation; Z66 Do not resuscitate; S30.810A Abrasion of lower back and pelvis, initial encounter; I10 Essential (primary) hypertension; K21.9 Gastro-esophageal reflux disease without esophagitis; E78.5 Hyperlipidemia, unspecified; M19.90 Unspecified osteoarthritis, unspecified site; R53.81 Other malaise; E11.9 Type 2 diabetes mellitus without complications; J98.2 Interstitial emphysema; E66.01 Morbid (severe) obesity due to excess calories; E87.6 Hypokalemia; X58.XXXA Exposure to other specified factors, initial encounter; Z68.33 Body mass index [BMI] 33.0-33.9, adult; Z74.01 Bed confinement status; Z79.82 Long term (current) use of aspirin; Z88.5 Allergy status to narcotic agent; Z88.0 Allergy status to penicillin; Y93.89 Activity, other specified; Y92.89 Other specified places as the place of occurrence of the external cause; Y99.8 Other external cause status
CPT/HCPCS: 31500; 36415; 36600; 71045; 71250; 80048; 80053; 80076; 80202; 81001; 82550; 82728; 82803; 82948; 83605; 83615; 83735; 83874; 83880; 84100; 84132; 84145; 84484; 85025; 85027; 85378; 85610; 85730; 86140; 86850; 86900; 86901; 86927; 87040; 87071; 87088; 87205; 87426; 87804; 93005; 93306; 93970; 94002; 94660; 99291; C1751; C1894; G0378; J0282; J0456; J0692; J0696; J1100; J1450; J1650; J1815; J1940; J2405; J3370; J3490; J7040; J7050; J7060; J7120